=== PATIENT | female | born 1985 | race Caucasian/White ===

== ENCOUNTER 2019-06-19 14:40 | Emergency (ER) | payer MEDICAID ==
[2019-06-19] MEDS ORDERED: Sodium Chloride 0.9% 1,000 ML IV ONE (15:05)
[2019-06-19 15:17] LABS: CHLORIDE,CL 105 mmol/L (98-107); SODIUM,NA 139 mmol/L (136-145)
--- NOTE | 2019-06-19 16:39 | EDM.PDOC ---
ED HPI GENERAL MEDICAL PROBLEM - General Chief Complaint: General Stated Complaint: DEHYDRATION Time Seen by Provider: 06/19/19 15:05 Source of Information: Reports: Patient History Limitations: Reports: No Limitations - History of Present Illness INITIAL COMMENTS - FREE TEXT/NARRATIVE: Pt with N/V/D for sevreal days No fever No blood in emesis or diarrhea Son with similar symptoms Decreased oral intake Pt is 32 week - Related Data Allergies Allergy/AdvReac Type Severity Reaction Status Date / Time amoxicillin [From Augmentin] Allergy Hives Verified 06/19/19 14:46 cefixime [From Suprax] Allergy Hives Verified 06/19/19 14:46 clavulanic acid Allergy Hives Verified 06/19/19 14:46 [From Augmentin] erythromycin base Allergy Hives Verified 06/19/19 14:46 Penicillins Allergy Hives Verified 06/19/19 14:46 Home Meds: Home Meds Levothyroxine [Synthroid] 100 mcg PO ACBREAKFAST 06/19/19 [History] Past Medical History HEALTHCARE LIAISON History: Reports: Oncologic (Cancer) History: Reports: Other (See Below) Other Oncologic History: unknown cancer of the hand, 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 - Past Surgical History HEENT Surgical History: Reports: Adenoidectomy, Tonsillectomy Female Surgical History: Reports: Section ED ROS GENERAL - Review of Systems Review Of Systems: See Below Respiratory: Reports: No Symptoms Cardiovascular: Reports: No Symptoms GI/Abdominal: Reports: Abdominal Pain, Diarrhea, Nausea, Vomiting : Reports: No Symptoms ED EXAM, GENERAL - Physical Exam Exam: See Below Throat/Mouth: Normal Oropharynx GI/Abdominal: Soft, Non-Tender (Female) Exam: Other (FHT's 130's) Extremities: Normal Capillary Refill Neurological: Alert, Oriented, Normal Cognition Course - Vital Signs Last Recorded V/S: Last Vital Signs Temp 36.6 C 06/19/19 14:40 Pulse 97 06/19/19 14:40 Resp 16 06/19/19 14:40 BP 128/77 06/19/19 14:40 Pulse Ox 100 06/19/19 14:40 - Orders/Labs/Meds Labs: Laboratory Tests 06/19/19 06/19/19 Range/Units 14:45 14:45 WBC 9.1 (4.0-10.2) K/uL RBC 4.06 (3.77-5.09) M/uL Hgb 11.1 L (11.7-15.5) g/dL Hct 35.0 (34.0-46.0) % MCV 86.2 (84.0-98.0) fL MCH 27.3 L (28.2-33.3) pg MCHC 31.7 (31.7-36.0) g/dL RDW 15.8 H (11.2-14.1) % Plt Count 235 (150-350) K/uL Neut % (Auto) 74.7 (45.0-80.0) % Lymph % (Auto) 16.7 (10.0-50.0) % Hayes % (Auto) 7.2 (2.0-14.0) % Eos % (Auto) 1.2 (0.0-5.0) % Baso % (Auto) 0.2 (0.0-2.0) % Neut # (Auto) 6.80 (1.40-7.00) K/uL Lymph # (Auto) 1.52 (0.50-3.50) K/uL Hayes # (Auto) 0.66 (0.00-1.00) K/uL Eos # (Auto) 0.11 (0.00-0.50) K/uL Baso # (Auto) 0.02 (0.00-0.20) K/uL Sodium 139 (136-145) mmol/L Potassium 3.7 (3.5-5.1) mmol/L Chloride 105 (98-107) mmol/L Carbon Dioxide 22.0 (21.0-32.0) mmol/L BUN 9 (7-18) mg/dL Creatinine 0.65 (0.51-1.17) mg/dL Est Cr Clr Drug Dosing 121.95 mL/min Estimated GFR (MDRD) > 60 mL/min Glucose 90 (74-106) mg/dL Calcium 9.1 (8.5-10.1) mg/dL TSH, Ultra Sensitive 2.432 (0.358-3.740) mIU/mL Meds: Medications Discontinued Medications Generic Name Dose Route Start Last Admin Trade Name Freq PRN Reason Stop Dose Admin Sodium Chloride 1,000 mls @ 1,000 mls/hr 06/19/19 15:05 06/19/19 15:16 Normal Saline IV 06/19/19 16:04 1,000 mls/hr .BOLUS ONE Administration - Re-Assessments/Exams Free Text/Narrative Re-Assessment/Exam: 06/19/19 16:38 See lab Pt given 1 L NS in ER Departure - Departure Time of Disposition: 17:00 Disposition: Home, Self-Care 01 Condition: Good Clinical Impression: Gastroenteritis - Discharge Information *PRESCRIPTION DRUG MONITORING PROGRAM REVIEWED*: Not Applicable *COPY OF PRESCRIPTION DRUG MONITORING REPORT IN PATIENT KALEB: Not Applicable Instructions: Viral Gastroenteritis, Adult, [id number] Referrals: Trinidad Malcolm PAKranthiC [Primary Care Provider] - Additional Instructions: Encourage fluids Follow up in clinic Return to ER of worse
== END 2019-06-19 17:15 | disposition home or self-care (01) ==
LOC: LL.ED 14:40 → MERGE 14:40 → LL.ED 17:15
DX: O99.613 Diseases of the digestive system complicating pregnancy, third trimester (principal); K52.9 Noninfective gastroenteritis and colitis, unspecified; Z88.1 Allergy status to other antibiotic agents; Z88.0 Allergy status to penicillin; Z88.8 Allergy status to other drugs, medicaments and biological substances; Z3A.32 32 weeks gestation of pregnancy
CPT/HCPCS: 36415; 80048; 84443; 85025; 96360; 96361; 99283-25; J7030

== ENCOUNTER 2023-04-06 14:01 | Emergency (ER) | payer MEDICAID ==
[2023-04-06 14:39] LABS: BASOPHILS ABSOLUTE AUTO 0.03 K/uL (0.00-0.20); BASOPHILS PERCENT AUTO 0.3 % (0.0-2.0); EOSINOPHILS ABSOLUTE AUTO 0.18 K/uL (0.00-0.50); EOSINOPHILS PERCENT AUTO 1.8 % (0.0-5.0); HEMATOCRIT 37.7 % (34.0-46.0); HEMOGLOBIN 11.9 g/dL (11.7-15.5); LYMPHOCYTES ABSOLUTE AUTO 2.16 K/uL (0.50-3.50); LYMPHOCYTES PERCENT AUTO 21.2 % (10.0-50.0); MEAN CORPUSCULAR HEMOGLOBIN 26.1 pg (28.2-33.3); MEAN CORPUSCULAR HGB CONC 31.6 g/dL (31.7-36.0); MEAN CORPUSCULAR VOLUME 82.7 fL (84.0-98.0); MONOCYTES PERCENT AUTO 6.9 % (2.0-14.0); NEUTROPHILS ABSOLUTE AUTO 7.12 K/uL (1.40-7.00); NEUTROPHILS PERCENT AUTO 69.8 % (45.0-80.0); PLATELET COUNT,PLT 267 K/uL (150-350); RED BLOOD CELL COUNT 4.56 M/uL (3.77-5.09); RED CELL DISTRIBUTION WIDTH 14.8 % (11.2-14.1); WHITE BLOOD CELL COUNT,WBC 10.2 K/uL (4.0-10.2)
[2023-04-06 15:01] LABS: PROTHROMBIN TIME 9.5 SEC (9.0-11.1)
[2023-04-06 15:04] LABS: ALANINE AMINOTRANSFERASE,ALT 17 U/L (12-78); ALBUMIN 3.7 g/dL (3.4-5.0); ALKALINE PHOSPHATASE 76 IU/L (46-116); ANION GAP 7.9 meq/L (7-15); ASPARTATE AMNIOTRANSFERASE,AST 17 U/L (15-37); BILIRUBIN TOTAL 0.4 mg/dL (0.2-1.0); BLOOD UREA NITROGEN,BUN 19 mg/dL (7-18); CALCIUM 9.3 mg/dL (8.5-10.1); CARBON DIOXIDE,CO2 30.1 mmol/L (21.0-32.0); CHLORIDE,CL 103 mmol/L (98-107); CREATININE 1.01 mg/dL (0.51-1.17); ESTIMATED GFR 74 mL/min (>=60); GLUCOSE RANDOM 101 mg/dL (70-99); POTASSIUM,K 3.6 mmol/L (3.5-5.1); PROTEIN TOTAL,TP 7.8 g/dL (6.4-8.2); SODIUM,NA 141 mmol/L (136-145)
[2023-04-06] MEDS ORDERED: Iopamidol 755 Mg/ML 100 ML Bottle IVPUSH STA (15:11)
== END 2023-04-06 16:10 | disposition home or self-care (01) ==
LOC: LL.ED 14:01
DX: G98.8 Other disorders of nervous system (principal); R51.9 Headache, unspecified; I10 Essential (primary) hypertension; Z88.0 Allergy status to penicillin; Z88.1 Allergy status to other antibiotic agents; Z79.899 Other long term (current) drug therapy
CPT/HCPCS: 36415; 70450; 80053; 82947; 85025; 85610; 99284